=== PATIENT | male | born 1965 | race Caucasian/White ===

== ENCOUNTER 2018-09-10 07:40 | Day surgery (SDC) | payer OTHER ==
[2018-09-10] MEDS ORDERED: LIDOCAINE 4% SOLUTION 50 ML BTL (08:14)
[2018-09-10] MEDS ORDERED: FENTAnyl 50 MCG/ML VIAL (09:28)
[2018-09-10] MEDS ORDERED: MIDAZOLAM 1 MG/ML 2 ML INJ ×3 (09:29)
== END 2018-09-10 12:58 | disposition home or self-care (01) ==
LOC: GIL 07:40
DX: Z12.11 Encounter for screening for malignant neoplasm of colon (principal); K64.0 First degree hemorrhoids; K29.30 Chronic superficial gastritis without bleeding; I10 Essential (primary) hypertension
CPT/HCPCS: 43239; 88305; 88312